=== PATIENT | male | born 1965 | race Caucasian/White ===

== ENCOUNTER 2016-03-05 10:59 | Emergency (ER) | payer MEDICARE ==
[2016-03-05 11:46] VITALS: RESP 18
[2016-03-05] MEDS ORDERED: HYDROmorphone 1 MG/ML 1 ML SYRINGE IM STA (12:54)
--- NOTE | 2016-03-05 13:08 | XR ---
EXAMINATION TYPE: XR foot complete RT DATE OF EXAM: 03/05/2016 12:53 PM COMPARISON: NONE HISTORY: 50-year-old male with heel pain from fall TECHNIQUE: 3 views FINDINGS: Fiberglass splint present. An underlying mildly distracted fracture is present through the mid calcan eal body with flattening of Boehler's angle. Overlying splint material obscures fine osseous detail. No definite additional acute fracture or dislocation seen. IMPRESSION: Impacted fracture of the mid calcaneal body with flattening of Boehler's angle. Overlying fiberglass splint obscures fine osseous detail.
--- NOTE | 2016-03-05 13:34 | ED ---
General Adult HPI - General Chief complaint: Extremity Injury, Lower Stated complaint: rt foot fx sent from [facility] Time Seen by Provider: 03/05/16 12:00 Source: patient, family, RN notes reviewed Mode of arrival: wheelchair Limitations: no limitations - History of Present Illness Initial comments: Chief complaint history of present illness a 50-year-old male who was falling off a ladder decided to jump. Landed on his right heel. X-rays done at another facility proved a calcaneal fracture. He also had a CAT scan done at that facility. They told him to follow up with orthopedics. Orthopedics is closed today so he can emergency room. I spoke with Dr. Mendiola ultrasound technologist sonographer for orthopedics he wants the patient to continue with the splint and keep it elevated and iced and follow-up with Dr. Silvestre damico tomorrow in the office. He is to bring his CAT scan with him. - Related Data Home Medications Medication Instructions Recorded Confirmed Bipolar Medications (3 Unknown) 3 tab PO HS 03/05/16 03/05/16 Diazepam [Valium] 10 mg PO BID 03/05/16 03/05/16 Hydrocodone/Acetaminophen [[place] 1 tab PO Q4HR PRN 03/05/16 03/05/16 7.5-325] Allergies Allergy/AdvReac Type Severity Reaction Status Date / Time No Known Allergies Allergy Verified 03/05/16 12:14 Review of Systems ROS Statement: Those systems with pertinent positive or pertinent negative responses have been documented in the HPI. Review of systems. No headache or chest pain chronic back pain no GI/ problems no neuro deficits. Pain to his right ankle. All systems are reviewed. Past medical problems significant for skin cancer a seizure disorder which stopped becoming a problem after he had back surgery. The patient's family history significant for sister with melanoma. Patient denies ALLERGIES. Encouraged not to smoke. ROS Other: All systems not noted in ROS Statement are negative. Past Medical History Past Medical History: Cancer, Seizure Disorder Additional Past Medical History / Comment(s): hx. skin cancer, ?seizure when had back injury several years ago, nothing since, urinary frequency & incontinence History of Any Multi-Drug Resistant Organisms: None Reported Past Surgical History: Back Surgery Additional Past Surgical History / Comment(s): back fusion Past Anesthesia/Blood Transfusion Reactions: No Reported Reaction Past Psychological History: Bipolar Smoking Status: Current every day smoker Past Alcohol Use History: None Reported Additional Past Alcohol Use History / Comment(s): hx alcohol abuse-hasn't drank for 5 years Past Drug Use History: None Reported - Past Family History Father Family Medical History: Cancer General Exam - General Exam Comments Initial Comments: General: The patient is awake and alert, here with an OCL splint from toe to knee area. Applied by [facility] last night for a right calcaneal fracture. Vital signs temp 98.3 pulse 90 respiratory rate 18 pulse ox 97% room air blood pressure 126/66 Neck: The neck is supple, there is no tenderness . Back: Chronic back pain no back pain increased since the fall yesterday. Musculoskeletal: Re-x-ray of the right foot and heel shows a calcaneal fracture. Patient's foot is in a short OCL splint. Neurological: No complaints of numbness or tingling. Limitations: no limitations Course Vital Signs 03/05/16 11:41 Temperature 98.3 F Pulse Rate 90 Respiratory 18 Rate Blood Pressure 126/66 O2 Sat by Pulse 97 Oximetry Medical Decision Making - Medical Decision Making X-ray of the right foot through the cast material shows a calcaneal fracture minimal displacement. Per radiologist. The case discussed Dr. Mendiola on-call orthopedics patient's to follow up in office tomorrow with Dr. araiza. Otherwise keep leg elevated with ice over the ankle. Disposition Clinical Impression: Calcaneal fracture Disposition: HOME SELF-CARE Condition: Fair Instructions: Calcaneal Fracture (ED) Additional Instructions: Keep leg elevated continue with pain medication ice over the ankle area. Call negative appointment for follow-up tomorrow with Dr. Barraza Referrals: Destiny Montiel III, MD [Primary Care Provider] - 1-2 days Jag Barraza MD [Medical Doctor] - 1-2 days Time of Disposition: 13:42
[2016-03-05 14:01] VITALS: BP 145/63; PULSE 92; TEMP 98.6
== END 2016-03-05 14:01 | disposition home or self-care (01) ==
LOC: EC 10:59
DX: S92.001A Unspecified fracture of right calcaneus, initial encounter for closed fracture (principal); S99.0 Physeal fracture of calcaneus; G40.909 Epilepsy, unspecified, not intractable, without status epilepticus; F17.200 Nicotine dependence, unspecified, uncomplicated; Z79.899 Other long term (current) drug therapy; W11.XXXA Fall on and from ladder, initial encounter
CPT/HCPCS: 99283; 96372; 73630; J1170

== ENCOUNTER → 2016-03-06 | Outpatient (CLI) | payer MEDICARE ==
--- NOTE | 2016-03-06 17:24 | CT ---
EXAMINATION TYPE: CT ankle RT wo con DATE OF EXAM: 03/06/2016 2:35 PM COMPARISON: NONE HISTORY: Patient jumped off ladder and fractured his calcaneous CT DLP: 180 mGycm Automated exposure control for dose reduction was used. FINDINGS: The ankle mortise is intact. Tibia and fibula appear intact. Talus is normal. There is a comminuted fracture of the calcaneus. There is some subluxation of the calcaneus fracture fragments. Soft tissue swelling is around the fracture site. There is flattening of Boehler's angle. Major fracture lines include the anterior neck of the calcaneus near the cuboid articular surface. Th e mid calcaneus at the talocalcaneal junction. There is also an oblique fracture line from the cooperative extension agent ior calcaneus to the mid calcaneal fracture. IMPRESSION: COMMINUTED FRACTURE OF THE CALCANEUS WITH ANGULATION OF FRACTURE FRAGMENTS. ADDITIONAL FRACTURES ARE NOT IDENTIFIED.
== END | disposition home or self-care (01) ==
LOC: RADCTMAIN 12:48
PROVIDERS: ATTEND Orthopaedic Surgery
DX: S92.001A Unspecified fracture of right calcaneus, initial encounter for closed fracture (principal)

== ENCOUNTER 2016-03-14 10:38 | Day surgery (SDC) | payer MEDICARE ==
[2016-03-12 08:48] VITALS: BMI 25.9
[~2016-03-14 10:38] MED LIST: DEXAMETHASONE SOD PHOSPHATE 10 MG/ML 1 ML VIAL IV ONE; HYDROmorphone 1 MG/ML 1 ML SYRINGE IVP PRN; LACTATED RINGERS 1,000 ML IV SCH; LIDOCAINE 1% 20 ML VIAL (10MG/ML) FOR IV START INTRADERMA PRN; ONDANSETRON 4 MG/2 ML VIAL IVP ONE; SCOPOLAMINE 1.5MG/72HR PATCH TRANSDERM ONE; ceFAZolin 2 GM in SODIUM CHLORIDE 0.9% 100 ML IVPB ONE
[2016-03-14 11:40] LABS: Basophils # (A) 0.1 k/uL (0-0.2); Basophils % (A) 0 %; CH 32.3; CHCM 33.5; Eosinophils # (A) 0.2 k/uL (0-0.7); Eosinophils % (A) 2 %; HCT 46.4 % (39.0-53.0); HDW 2.37; Luc # (Auto) 0.14; Luc % (Auto) 1; Lymphocytes # (A) 2.7 k/uL (1.0-4.8); Lymphocytes % (A) 21 %; MCH 31.3 pg (25.0-35.0); MCHC 32.3 g/dL (31.0-37.0); MCV 96.9 fL (80.0-100.0); Mean Platelet Volume 7.6; Monocytes # (A) 0.7 k/uL (0-1.0); Monocytes % (A) 6 %; Neutrophils # (A) 8.7 k/uL (1.3-7.7); Neutrophils % (A) 69 %; RBC 4.79 m/uL (4.30-5.90); RDW 12.9 % (11.5-15.5); WBC 12.5 k/uL (3.8-10.6); WBC (Perox) 13.04
[2016-03-14] MEDS ORDERED: MIDAZOLAM 2 MG/2 ML VIAL IV ONE (11:59)
[2016-03-14] MEDS ORDERED: fentaNYL (PF) 50 MCG/ML 2 ML AMP IV ONE (11:59)
--- NOTE | 2016-03-14 12:29 | P.ONQ ---
Anesthesiology Proc Note - PNB - Peripheral Nerve Block Performed Right Popliteal Single Time Out Performed: Yes Indication: Acute Post-Operative Pain, Analgesia, Requested by physician Specifically requested for management of pain by DrMelissa: Jag Barraza Sedation Type: Sedate with meaningful contact maintained Preparation: Sterile Prep Position: (Left lateral) Catheter: None Needle Types: Other (see comment) (stimuplex) Needle Size: 50mm (2") Needle Gauge: Other (see comment) (22) Technique: Ultrasound Injectate: 0.5% Ropivacaine (see comment for volume) (0.5% Ropivacaine (10cc) 2.0% lidocaine (10cc)) Adjunct: Epinephrine (see comment for dilution ratio) (5 mcg per cc) Blood Aspirated: No Pain Paresthesia on Injection Noted: No Resistance on Injection: Normal Events: Uneventful and Well Tolerated
[2016-03-14] MEDS ORDERED: LIDOCAINE 1% INJ 10MG/ML (20 ML MDV) ONE (13:02)
[2016-03-14] MEDS ORDERED: MIDAZOLAM 2 MG/2 ML VIAL ONE (13:02)
[2016-03-14] MEDS ORDERED: ePHEDrine 50 MG/ML 1 ML AMP ONE (13:02)
[2016-03-14] MEDS ORDERED: PROPOFOL 10 MG/ML 20 ML VIAL IV ONE (13:02)
[2016-03-14] MEDS ORDERED: fentaNYL (PF) 50 MCG/ML 2 ML AMP ONE (13:02)
[2016-03-14] MEDS ORDERED: SUCCINYLCHOLINE CHLORIDE 100 MG/5 ML SYR IV ONE (13:02)
[2016-03-14] MEDS ORDERED: ceFAZolin 1,000 MG in SODIUM CHLORIDE 0.9% 1,000 ML IRRIGATION ONE (13:37)
[2016-03-14] MEDS ORDERED: LACTATED RINGERS 1,000 ML IV ONE (13:48)
[2016-03-14] MEDS ORDERED: HYDROcodone/APAP 5-325MG 1 EACH TAB PO PRN (15:06)
[2016-03-14] MEDS ORDERED: SENNOSIDES-DOCUSATE SODIUM 1 EACH TAB PO PRN (15:06)
[2016-03-14] MEDS ORDERED: TEMAZEPAM 15 MG CAP PO PRN (15:06)
[2016-03-14] MEDS ORDERED: diphenhydrAMINE 25 MG CAP PO PRN (15:06)
[2016-03-14] MEDS ORDERED: PROCHLORPERAZINE SUPPOSITORY 25 MG SUPP RECTAL PRN (15:06)
[2016-03-14] MEDS ORDERED: ONDANSETRON 4 MG/2 ML VIAL IVP PRN (15:06)
[2016-03-14] MEDS ORDERED: HYDROmorphone 1 MG/ML 1 ML SYRINGE IVP PRN ×3 (15:06)
[2016-03-14] MEDS ORDERED: METOCLOPRAMIDE 5 MG/ML 2 ML VIAL IVP PRN (15:06)
--- NOTE | 2016-03-14 15:30 | P.OP ---
Date of Procedure: 03/14/16 Preoperative Diagnosis: 1. Closed, right joint depression calcaneus fracture 2. Current cigarette smoker, smoking up to 1 pack of cigarettes a day Postoperative Diagnosis: 1. Closed, right joint depression calcaneus fracture 2. Current cigarette smoker, smoking up to 1 pack of cigarettes a day Procedure(s) Performed: Limited, small incision open reduction and percutaneous screw fixation of right calcaneus fracture Implants: Benito cannulated fully threaded 5.5 mm screws Anesthesia: GETA Surgeon: Jag Barraza Test Inspection Engineer #1: Jonnathan Francois Estimated Blood Loss (ml): 10 IV fluids (ml): 1,400 Pathology: none sent Condition: stable Disposition: PACU Indications for Procedure: The patient is a 50-year-old male with a medical history significant for smoking up to 1 pack of cigarettes a day who sustained a fall off a ladder on resulting in a closed, right calcaneus fracture. He was initially seen by my partner Dr. Daryl Mendiola and then transferred to my office. I initially recommended nonoperative treatment to the patient's have a history of smoking, but the patient after discussing with his friend who had previously had ankle fracture surgery requested that I perform operative fixation. The patient was placed in a prefabricated calcaneus AFO brace and sent for a computed tomography scan. After the computed tomography scan the patient came back to the office to discuss further treatment. I again discussed both nonoperative and operative treatment. The x-rays and computed tomography scan showed a joint depression calcaneus fracture with almost complete loss of height with a markedly depressed Bohler's angle. I again recommended nonoperative treatment but the patient requested surgery. Due to the amount of displacement and loss of height we discussed that it would be reasonable to attempt surgery. We discussed both small incision reduction and percutaneous fixation as described by Raji versus open reduction and internal fixation through an extensile lateral approach. Due to the patient's history of smoking I recommended against an extensile lateral approach for fear of wound healing problems. The patient agreed and stated that he would like to go forward with limited incision reduction and percutaneous fixation of his calcaneus fracture. We discussed the potential risks and complications of surgery including but not limited to risks from anesthesia, risk of delayed wound healing, risk of superficial infection, risk of deep infection, risk of intraoperative fracture, risk of fracture nonunion, risk of fracture malunion, risk of symptomatically hardware, risk of loss of reduction, risk of inability to obtain an anatomic reduction, risk of damage to local sensory nerves resulting in temporary or permanent numbness, risk of chronic pain, risk of chronic swelling, risk of need for further surgery, risk of inability to walk, risk of need for assistive device to walk, risk of dissatisfaction with surgery, and possibly loss of life or limb. The patient understands these potential complications and understands that he is a higher risk of having a complication due to his history of cigarette smoking. He provided his verbal and written consent to go forward with surgery. Description of Procedure: The patient was identified in preoperative holding and the correct right leg was marked with my initials. I reviewed the consent form with the patient. All of his questions were answered prior to going back to the operating room. Prior to leaving preoperative holding anesthesia placed a popliteal block. The patient was then brought back to the operating room. Upon entering the operating room he was transferred from the [facility] onto the operating room table. He was placed in the lateral decubitus position with his left side down and right side up. An axillary roll was placed. He was secured to the table using a beanbag. The unaffected left leg was scissored anteriorly and secured to the operating room table with foam pads and tape. A tourniquet was applied the proximal aspect of the right thigh. A bone foam ramp was placed under his right leg the elevated facilitate imaging. Prior to draping the patient C-arm was brought in to verify that both axial and lateral views could be obtained. The patient's right leg was then prepped and draped in the standard sterile fashion. Prior to starting surgery timeout was performed identifying the correct patient, operative extremity, and procedure. The patient's right leg was then elevated, exsanguinated with an Esmarch bandage, and the tourniquet was inflated to 250 mmHg. I began by marking out a stab incision for a percutaneously placed Schanz pin to help with our reduction. Using a [place] elevator I marked out over the lateral skin of the calcaneus a small incision at the posterior inferior aspect of the posterior tuberosity. Skin incision was made with a 15 blade scalpel and dissection was carried down carefully through the subcutaneous tissue with a [place]. I then used a 2.5 mm drill bit to drill a bicortical track for a Schanz pin. I then placed a fully threaded 5 mm Shantz plan from lateral to medial verifying position of the Schanz pin with C-arm in both the lateral and axial views. I then marked out another incision along the lateral aspect of the heel just proximal to the glabrous skin directly under the large posterior facet fragment. Skin incision was made with a 15 blade scalpel and dissection was carried down through the subcu tenderness tissue with a hemostat. I then attempted to perform a closed reduction with the use of the previously placed Schanz pin and a wooden handled AO elevator. A universal T-handled dee dee was placed on the Schanz pin and a combination of longitudinal traction to gain height and eversion to attempt to get the tuberosity out of varus was performed. The wooden handled AO elevator was used to free up the primary fracture line and help elevate the posterior facet fragment. C-arm was used to assess reduction. On the lateral view the posterior facet was elevated improving our height. The axial view showed some improvement with the heel coming out of varus. Once the reduction was improved guidewires 5.5 mm fully threaded screws were placed. 2 guidewires were placed on the superior aspect of the posterior tuberosity aiming towards the anterior process of the calcaneus attempting to raft the posterior facet. 2 K wires were then placed along the inferior aspect of the posterior tuberosity. All K wires were advanced into the anterior process of the calcaneus. C-arm was used to assess both the reduction and position of the K wires. On the lateral view the posterior facet fragment appeared to be in better position with height restored. On the axial view the heel appeared to be still in a touch of varus but significantly improved. Stab incisions were made over the K wires. A cannulated depth gauge was used to measure the screw length. A cannulated drill bit was used to open a track for the screws within the posterior tuberosity calcaneus. Appropriately length fully threaded 5.5 mm screws were then inserted by hand over the K wires. All K wires were removed by hand. The 5 mm Schanz pin was removed. At this point C-arm was used to take final x- rays. On the lateral view the posterior facet appeared to be elevated with support from the underlying screws. An AP view of the foot showed all of the screws within the anterior process of the calcaneus. The axial heel view showed improved alignment of the posterior tuberosity and all screws were within bone. I accepted the reduction and position of the screws. The tourniquet was then deflated with a total tourniquet time of 74 minutes. All wounds were copiously irrigated with sterile saline. All wounds were closed with 3-0 nylon horizontal mattress stitches. After the incisions were closed I verified with the principal technologist that all instrument, sponge, and sharp counts were correct. A sterile dressing consisting of Betadine soaked Adaptic, 4 x 4, and an ABDs was applied followed by a 4 inch web roll. The patient was then placed back in the supine position after the drapes were removed and a very well- padded bulky Rendon type splint was applied and the patient transferred from the operating table on the [place] and extubated. He was then brought to PACU having tolerated the procedure well. Plan: The patient will be admitted overnight for IV antibiotics and pain control. He is to be strictly nonweightbearing on his right lower extremity. He will receive Lovenox for DVT prophylaxis while in-house and will be discharged home with aspirin. Open and seeing him in the office in 2 weeks for splint and suture removal with x-rays of the right calcaneus including a lateral and axial heel view.
[2016-03-14 16:03] VITALS: RESP 16
[2016-03-14 16:50] LABS: Basophils % (A) 0 %; CHCM 32.5; Eosinophils # (A) 0.1 k/uL (0-0.7); Eosinophils % (A) 1 %; HCT 44.8 % (39.0-53.0); HDW 2.36; HGB 14.1 gm/dL (13.0-17.5); Luc # (Auto) 0.04; Luc % (Auto) 0; Lymphocytes % (A) 7 %; MCH 31.1 pg (25.0-35.0); MCHC 31.5 g/dL (31.0-37.0); MCV 98.8 fL (80.0-100.0); Mean Platelet Volume 8.5; Monocytes # (A) 0.2 k/uL (0-1.0); Monocytes % (A) 2 %; Neutrophils # (A) 12.5 k/uL (1.3-7.7); Neutrophils % (A) 90 %; RBC 4.53 m/uL (4.30-5.90); RDW 12.9 % (11.5-15.5); WBC 13.9 k/uL (3.8-10.6); WBC (Perox) 14.87
--- NOTE | 2016-03-14 17:07 | XR ---
EXAMINATION TYPE: XR calcaneus 2V RT DATE OF EXAM: 03/14/2016 2:58 PM COMPARISON: NONE HISTORY: Calcaneus repair TECHNIQUE: 2 minutes 9 seconds fluoroscopy time was provided for procedure. 3 paper films are obtaine d. IMPRESSION: 1. Fluoroscopy documenting the procedure
--- NOTE | 2016-03-14 17:08 | FL ---
EXAMINATION TYPE: FL guidance operating room DATE OF EXAM: 03/14/2016 2:58 PM COMPARISON: NONE HISTORY: Right calcaneus repair TECHNIQUE: 2 minutes 9 seconds of fluoroscopy time was provided for procedure. Impressions: 1. Fluoroscopy for procedure documentation
[2016-03-14] MEDS: LACTATED RINGERS 1,000 ML IV SCH ×2 (19:32→23:40)
[2016-03-14] MEDS: ceFAZolin 2 GM in SODIUM CHLORIDE 0.9% 100 ML IVPB SCH ×2 (19:45→23:40)
[2016-03-14] MEDS: HYDROcodone/APAP 5-325MG 1 EACH TAB PO PRN (19:50)
[2016-03-14] MEDS: hydrOXYzine PAMOATE 25 MG CAP PO PRN (19:51)
[2016-03-14] MEDS ORDERED: risperiDONE 0.5 MG TAB PO SCH (21:00)
[2016-03-14] MEDS ORDERED: risperiDONE 2 MG TAB PO SCH (21:00)
[2016-03-14] MEDS ORDERED: traZODone HCL 50 MG TAB PO SCH (21:00)
[2016-03-14] MEDS: DIAZEPAM 5 MG TAB PO SCH (21:49)
[2016-03-15] MEDS: HYDROcodone/APAP 5-325MG 1 EACH TAB PO PRN ×2 (01:28→08:41)
[2016-03-15] MEDS: hydrOXYzine PAMOATE 25 MG CAP PO PRN (01:29)
[2016-03-15 08:20] VITALS: BP 130/75; PULSE 75; TEMP 98.6
[2016-03-15] MEDS ORDERED: CITALOPRAM HYDROBROMIDE 20 MG TAB PO SCH (09:00)
[2016-03-15] MEDS ORDERED: ENOXAPARIN 40 MG/0.4 ML SYRINGE SQ SCH (09:00)
--- NOTE | 2016-03-15 09:39 | P.DS ---
Providers Date of admission: 03/14/2016 Expected date of discharge: 03/15/16 Attending physician: Jag Barraza Primary care physician: Stated None Hospital Course: Patient was admitted to the OR on 03/14/2016 to undergo limited open internal fixation/percutaneous pinning of right calcaneus fracture. He underwent the procedure which he tolerated well without complication. His postoperative hospital course has remained without complication. On day of discharge he desires discharge to home. On day of discharge his splint and bandages are clean and dry. He has less than 2 second cap refill in all digits. He's able to wiggle all toes. His sensation to light touch intact throughout all toes. He has active motor proximal to the splint and sensation is intact in the proximal right lower extremity as well. He is afebrile, vital signs are stable , labs within acceptable ranges, abdomen soft and nontender and he has no new complaints. Review of systems is negative for fever, chills, chest pain, shortness breath, nausea, vomiting, dizziness, headaches, slurred speech or other. Procedures: Limited Open Internal fixation of calcaneus fracture Patient Condition at Discharge: Good Plan - Discharge Summary New Discharge Prescriptions: Aspirin 325 mg PO BID #60 tab HYDROcodone/APAP 7.5-325MG [[place] 7.5-325] 1 - 2 tab PO Q6HR PRN #60 tab PRN Reason: Pain Discharge Medication List Diazepam [Valium] 10 mg PO BID 03/05/16 [History] Hydrocodone/Acetaminophen [[place] 7.5-325] 1 tab PO Q6H PRN 03/05/16 [History] risperiDONE [RisperDAL] 0.5 mg PO HS 03/12/16 [History] risperiDONE [RisperDAL] 2 mg PO HS 03/12/16 [History] Citalopram Hydrobromide [CeleXA] 40 mg PO DAILY 03/14/16 [History] traZODone HCL 150 mg PO HS 03/14/16 [History] Aspirin 325 mg PO BID #60 tab 03/15/16 [Rx] HYDROcodone/APAP 7.5-325MG [[place] 7.5-325] 1 - 2 tab PO Q6HR PRN #60 tab [Rx] Follow up Appointment(s)/Referral(s): Jag Barraza MD [Medical Doctor] - 10 Days Activity/Diet/Wound Care/Special Instructions: Maintain Splint, keep clean and dry Keep right Leg elevated above heart Non weightbearing right lower extremity Take meds as directed F/U with Dr. Barraza in office, [phone] Discharge Disposition: HOME SELF-CARE
[2016-03-15] MEDS: DIAZEPAM 5 MG TAB PO SCH (10:32)
[2016-03-15] MEDS: LACTATED RINGERS 1,000 ML IV SCH (10:39)
== END 2016-03-15 13:34 | disposition home or self-care (01) ==
LOC: OR 10:38 → 3SUR 15:20 → OR 03-15 13:34
PROVIDERS: ATTEND Orthopaedic Surgery
DX: S92.001A Unspecified fracture of right calcaneus, initial encounter for closed fracture (principal); W11.XXXA Fall on and from ladder, initial encounter; F17.210 Nicotine dependence, cigarettes, uncomplicated; F31.9 Bipolar disorder, unspecified; R56.9 Unspecified convulsions; Z79.891 Long term (current) use of opiate analgesic; Z79.899 Other long term (current) drug therapy
CPT/HCPCS: 97161; 85025; 73650; 28406; C1713; J2250; J1100; J0690 ×2; J2405; J2001; J1650; J3010; J0330; J2704

== ENCOUNTER → 2020-04-20 | Outpatient (CLI) | payer MEDICARE ==
--- NOTE | 2020-04-20 21:57 | CT ---
EXAMINATION TYPE: CT abdomen pelvis w con DATE OF EXAM: 04/20/2020 COMPARISON: None INDICATION: Abdominal cramping and diarrhea. DLP: 710.9 mGycm, Automated exposure control for dose reduction was used. CONTRAST: 100 mL of Isovue M300. Study performed with Oral Contrast TECHNIQUE: Axial images were obtained from above the diaphragm to the pubic rami in the axial plane a t 5 mm thick sections. Reconstructed images are reviewed on the computer in the coronal plane. FINDINGS: Limited CT sections are obtained the lung bases. The lung bases are clear. CT ABDOMEN: Liver: There is a 1.5 cm cyst measuring -1 Houns[place] units at the right tip of the liver. Spleen: Normal Pancreas: Normal Adrenal glands: The adrenal glands are normal. Gallbladder: Normal Kidneys: No masses are evident. No hydronephrosis is present. There is a 2.4 cm cyst measuring 10 [place] units on the posterior mid left kidney. Delayed images were obtained through the kidneys, which remain unremarkable. Aorta: Vascular calcification is within the aorta. Inferior vena cava: Normal. CT PELVIS: Loops of bowel within the abdomen and pelvis are normal. Scattered diverticuli are within the sigmoid colon There are loops of bowel which are incompletely distended or lack oral contrast limiting th eir evaluation. Fecal debris is through the colon. Appendix: Normal as visualized. Urinary bladder: Normal. Genitourinary structures: Prostate is prominent. Osseous structures: No suspicious lytic or sclerotic lesions. IMPRESSIONS: 1. Diverticulosis without acute diverticulitis. 2. Left renal cyst. 3. Small hepatic cyst
== END | disposition home or self-care (01) ==
LOC: RADCTMAIN 11:22
PROVIDERS: ATTEND Physician Assistant Medical
DX: K57.90 Diverticulosis of intestine, part unspecified, without perforation or abscess without bleeding (principal); N28.1 Cyst of kidney, acquired; K76.89 Other specified diseases of liver; F10.21 Alcohol dependence, in remission; Z72.0 Tobacco use
CPT/HCPCS: 74177; Q9967 ×2

== ENCOUNTER → 2021-05-03 | Outpatient (CLI) | payer MEDICARE ==
--- NOTE | 2021-05-03 20:50 | CTL ---
EXAMINATION TYPE: CT Low Dose Lung DATE OF EXAM ORDERED: 05/03/2021 HISTORY: Tobacco use. Lung cancer screening CT DLP: [address] CTDI: 1.9 mGy Automated exposure control for dose reduction was used. SCREENING VISIT: Baseline COMPARISON: None available TECHNIQUE: Low dose computed tomography scan was performed through the chest at 1 mm thick sections a nd reconstructed images in multiple planes at 1 mm and [address] DIAGNOSTIC QUALITY: Satisfactory FINDINGS: LUNG NODULES: None. Right lower lobe groundglass [address] image 178. Right lower lobe groundglass [address] image 68. LUNGS: COPD: Severity: Moderate Fibrosis: Severity: Minimal apical Lymph nodes: No pathologically enlarged Other findings: Diffuse bronchial wall thickening which may suggest chronic bronchitis. Suspected sab er-sheath trachea. RIGHT PLEURAL SPACE: Effusion: None Calcification: None Thickening: None Pneumothorax: None LEFT PLEURAL SPACE: Effusion: None Calcification: None Thickening: None Pneumothorax: None HEART: Heart Size: Normal Coronary Calcification: None Pericardial Effusion: None OTHER FINDINGS: Upper abdomen: None Bony thorax: Lower cervical spinal fixation, not completely included in the scan. Supraclavicular region: None Other: Arterial atherosclerotic calcification mainly seen in the aortic arch. IMPRESSION: 2 right lower lobe nodules measuring up to 4 mm with other incidental findings as describ ed above. CT LUNG RAD AND CT CHEST RECOMMENDATION: Benign appearance or behavior, category 2: For continuing an nual screening with LDCT in 12 months. S Modifier (other clinically significant findings): None
== END | disposition home or self-care (01) ==
LOC: RADCTMAIN 14:51
PROVIDERS: ATTEND Family Medicine
DX: Z12.2 Encounter for screening for malignant neoplasm of respiratory organs (principal); R91.8 Other nonspecific abnormal finding of lung field; Z87.891 Personal history of nicotine dependence
CPT/HCPCS: 71271

== ENCOUNTER → 2022-01-19 | Outpatient (CLI) | payer MEDICARE ==
--- NOTE | 2022-01-19 09:54 | CT ---
EXAMINATION TYPE: CT abdomen wo/w con DATE OF EXAM: 01/19/2022 COMPARISON: 04/20/2021 HISTORY: Neoplasm of left kidney CT DLP: 1247 mGycm Automated exposure control for dose reduction was used. TECHNIQUE: Helical acquisition of images was performed from the lung bases through the top of iliac crest to include entire abdomen. CONTRAST: Performed without Oral Contrast and without and with IV Contrast, patient injected with 100 ml mL of Isovue 300. FINDINGS: LUNG BASES: Mild emphysematous changes are seen involving the lung bases. LIVER/GB: Stable hypodensities within the liver unchanged from prior exam suggestive of cysts measuri ng approximately 1 Hounsfield unit.. PANCREAS: No significant abnormality is seen. SPLEEN: No significant abnormality is seen. ADRENALS: There is a 5 mm nodule extending off the upper margin of the left adrenal gland measuring - 17 Hounsfield units compatible with an incidental adenoma. KIDNEYS: Left kidney demonstrates a cystic lesion measuring 3 cm and 2 Hounsfield units on noncontrast images. Postcontrast images demonstrate 6 Hounsfield units compatible with simple cyst Bosniak classificatio n is an additional exophytic lesion which does not meet the criteria of a simple cyst and appears iso dense to renal cortex on noncontrast imaging measuring 8 mm extending off the lateral mid pole. There is 37 Hounsfield units precontrast and 38 Hounsfield units postcontrast with no significant enhancem ent could represent high proteinaceous or hemorrhagic cyst. Recommend MRI follow-up. Previously measu red 4 Hounsfield units and was present on the prior exam. Therefore suspect or may have been interval hemorrhagic changes or high proteinaceous changes. Right kidney demonstrates no evidence of hydronephrosis or nephrolithiasis. No focal mass. BOWEL: No significant abnormality is seen. LYMPH NODES: No significant abnormality is seen. OSSEOUS STRUCTURES: No significant abnormality is seen. FREE AIR: No free air is visualized. OTHER: Aorta of normal caliber. Small hiatal hernia incidentally noted IMPRESSION: 1. THERE IS AN 8 MM EXOPHYTIC LEFT RENAL MIDPOLE LESION WHICH DOES NOT MEET THE CRITERIA OF A SIMPLE CYST MEASURING 37 HOUNSFIELD UNITS. THIS PREVIOUSLY MEASURED 4 HOUNSFIELD UNITS THEREFORE MOST LIKELY ETIOLOGY IS A HIGH PROTEINACEOUS OR HEMORRHAGIC CYST WHICH COULD BE CONFIRMED WITH MRI. 2. THERE IS A LARGER 3 CM SIMPLE APPEARING LEFT RENAL CYST BOSNIAK CLASSIFICATION 1. 3. STABLE HEPATIC CYST
== END | disposition home or self-care (01) ==
LOC: RADCTMAIN 08:39
PROVIDERS: ATTEND Family Medicine
DX: D49.512 Neoplasm of unspecified behavior of left kidney (principal); K76.89 Other specified diseases of liver; N28.1 Cyst of kidney, acquired
CPT/HCPCS: 74170; Q9967

== ENCOUNTER → 2022-03-14 | Outpatient (CLI) | payer MEDICARE ==
--- NOTE | 2022-03-15 16:33 | MR ---
EXAMINATION TYPE: MR abdomen wo/w con DATE OF EXAM: 03/14/2022 6:07 PM INDICATION: Patient age:Male; 56 years old; Reason for study: N28.1 CYST OF KIDNEY;. Renal cyst. COMPARISON: CT scan abdomen from 01/20/2022. TECHNIQUE: Multiplanar multi-sequence imaging was performed without contrast. Post contrast imaging was performed. Post IV contrast subtraction images were also submitted for review. IV Contrast: 7 cc Gadavist FINDINGS: LOWER CHEST: No gross irregularity. ABDOMEN Liver: Right hepatic lobe cyst measuring up to 9 mm with thin septation and additional scattered subc entimeter high T2 foci throughout the liver parenchyma. No abnormal postcontrast enhancement. Gallbladder and Bile ducts: Unremarkable. Pancreas: Unremarkable. Spleen: Unremarkable. Adrenal glands: Unremarkable. Kidneys: Right, demonstrates no evidence of obstructive uropathy or cyst or suspicious mass. Left exophytic left mid pole lesion measures up to 9 mm that is intermediate T1 and Low/intermediate T2 signal. Post contrast imaging with subtraction images demonstrates no evidence for postcontrast en hancement. Stomach and Bowel: Unremarkable as visualized. Peritoneum: No evidence of pneumoperitoneum, free fluid, or adenopathy. Vasculature: Unremarkable. No aortic aneurysm. Musculoskeletal: The osseous structures appear intact. Abdominal wall: Fat-containing umbilical hernia. IMPRESSION: 1. Left renal cortical proteinaceous/hemorrhagic cyst. No suspicious renal masses. 2. Left renal simple cyst. 3. Hepatic simple and mildly complex cysts.
== END | disposition home or self-care (01) ==
LOC: RADMRIMAIN 17:00
PROVIDERS: ATTEND Family Medicine
DX: N28.1 Cyst of kidney, acquired (principal); K76.89 Other specified diseases of liver
CPT/HCPCS: 74183; A9585

== ENCOUNTER → 2022-08-27 | Outpatient (CLI) | payer MEDICARE ==
--- NOTE | 2022-08-28 11:14 | CTL ---
EXAMINATION TYPE: CT Low Dose Lung DATE OF EXAM ORDERED: 08/27/2022 HISTORY: Hemoptysis, smoker. Lung cancer screening CT DLP: 83.[address] CTDI: 2.2 mGy Automated exposure control for dose reduction was used. SCREENING VISIT: Subsequent follow-up COMPARISON: 05/03/2021 TECHNIQUE: Low dose computed tomography scan was performed through the chest at 1 mm thick sections a nd reconstructed images in the coronal plane at [address] DIAGNOSTIC QUALITY: Satisfactory FINDINGS: LUNG NODULES: None. LUNGS: COPD: Severity: None Fibrosis: Severity: None Lymph nodes: There is a 1.1 cm pretracheal node at the level of the nima. This is stable from mary rison. Enlarged lymphadenopathy is not otherwise evident. There are some scattered small lymph nodes within the axillary regions. Other findings: None RIGHT PLEURAL SPACE: Effusion: None Calcification: None Thickening: None Pneumothorax: None LEFT PLEURAL SPACE: Effusion: None Calcification: None Thickening: None Pneumothorax: None HEART: Heart Size: Normal Coronary calcification: None Pericardial effusion: None OTHER FINDINGS: Upper abdomen: Normal Bony thorax: Normal Supraclavicular region: Normal Other: Ascending thoracic aorta at the level the main pulmonary artery measures 3.3 cm. The main pul monary artery at the bifurcation measures 2.9 cm. IMPRESSION: 1. No suspicious intrathoracic changes. FOLLOW UP CT CHEST RECOMMENDATION: Follow-up low-dose CT chest [address] LUNG RAD: Lung-Rad 2 Benign Appearance or Behavior
== END | disposition home or self-care (01) ==
LOC: RADCTMAIN 14:22
PROVIDERS: ATTEND Family Medicine
DX: Z12.2 Encounter for screening for malignant neoplasm of respiratory organs (principal); R04.2 Hemoptysis; F17.210 Nicotine dependence, cigarettes, uncomplicated
CPT/HCPCS: 71271

== ENCOUNTER → 2023-09-13 | Outpatient (CLI) | payer MEDICARE ==
--- NOTE | 2023-09-13 14:23 | CTL ---
EXAMINATION TYPE: CT Low Dose Lung DATE OF EXAM ORDERED: 09/13/2023 History: Lung cancer screening CT DLP: 72.[address] CTDI: 1.9 mGy Automated exposure control for dose reduction was used. Comparison: 08/27/2022 TECHNIQUE: Low dose computed tomography scan was performed through the chest at 1 mm thick sections a nd reconstructed images in multiple planes at 1 mm and [address] DIAGNOSTIC QUALITY: Satisfactory FINDINGS: FINDINGS:. There is no suspicious lung mass or nodule The lungs are clear and there is no abnormal consolidation or interstitial density. There is no mediastinal, hilar or axillary adenopathy. There is no pleural effusion, pleural thickening or pneumothorax. No focal osseous lesions are seen. Limited scans the upper abdomen reveals no gross adenopathy. IMPRESSION: 1. BI-RADS Category 1 negative. Continue routine screening at yearly intervals. 2. No acute cardiopulmonary disease.
== END | disposition home or self-care (01) ==
LOC: RADCTMAIN 13:44
PROVIDERS: ATTEND Family Medicine
DX: Z12.2 Encounter for screening for malignant neoplasm of respiratory organs (principal); F17.210 Nicotine dependence, cigarettes, uncomplicated
CPT/HCPCS: 71271

== ENCOUNTER → 2024-06-18 | Outpatient (CLI) | payer MEDICARE ==
--- NOTE | 2024-06-18 13:44 | XR ---
EXAMINATION TYPE: XR shoulder limited LT DATE OF EXAM: 06/18/2024 1:40 PM INDICATION: Patient age:Male; 58 years old; Reason for study: M25.512 PAIN IN LEFT SHOULDER; pain COMPARISON: No direct comparisons. TECHNIQUE: The left shoulder was examined in AP and scapular Y projections. . FINDINGS: No evidence of acute osseous pathology, joint dislocation, or soft tissue swelling. Cervical fusion h ardware demonstrated. Atherosclerotic calcification of the aortic arch. The remaining portions of the visualized chest are unremarkable. IMPRESSION: No acute osseous pathology. [facility], , 06/18/2024 1:42 PM
== END | disposition home or self-care (01) ==
LOC: RADXRMAIN 13:22
PROVIDERS: ATTEND Family Medicine
DX: M25.512 Pain in left shoulder (principal)